=== PATIENT | male | born 1985 ===

== ENCOUNTER 2018-05-14 13:53 | Emergency (ER) | payer OTHER ==
[2018-05-14 14:17] VITALS: BMI 26.5
[2018-05-14 14:21] VITALS: RESP 24; TEMP 98.4; O2SAT 98
[2018-05-14] MEDS ORDERED: Sodium Chloride 0.9% 1,000 ML IV STA (14:21)
--- NOTE | 2018-05-14 14:32 | ED PDOC ---
Arrival/HPI - General Chief Complaint: Abdominal Pain Time Seen by Provider: 05/14/18 14:09 Historian: Patient - History of Present Illness Narrative History of Present Illness (Text): 05/14/18 14:29 32yo male with no past medical history who present with complaint of diffuse "burning" abdominal pain x 2days. Notes that pain is usually after eating. Did not take any medication. Denies previous history. Denies nausea, vomiting, diarrhea, constipation, fever, chills, melena, hemaetemesis, dizziness, urinary symptoms, chest pain, any other complaint. Past Medical History - Provider Review Nursing Documentation Reviewed: Yes - Infectious Disease Hx of Infectious Diseases: None - Psychiatric Hx Substance Use: No Family/Social History - Physician Review Nursing Documentation Reviewed: Yes Family/Social History: Unknown Family HX Smoking Status: Never Smoked Hx Alcohol Use: No (Former Drinker) Hx Substance Use: No Allergies/Home Meds Allergies/Adverse Reactions: Allergies No Known Allergies Allergy (Verified 05/14/18 14:17) Review of Systems - Physician Review All systems were reviewed & negative as marked: Yes - Review of Systems Constitutional: Normal Eyes: Normal ENT: Normal Respiratory: Normal Cardiovascular: Normal Gastrointestinal: Abdominal Pain. absent: Constipation, Diarrhea, Nausea, Vomiting, Hematochezia, Hematemesis Genitourinary Male: Normal Musculoskeletal: Normal Skin: Normal Neurological: Normal Endocrine: Normal Hemo/Lymphatic: Normal Psychiatric: Normal Physical Exam Vital Signs Reviewed: Yes Vital Signs Temp Pulse Resp BP Pulse Ox 05/14/18 14:19 98.4 F 62 24 118/60 98 Temperature: Afebrile Blood Pressure: Normal Pulse: Regular Respiratory Rate: Normal Appearance: Positive for: Well-Appearing, Non-Toxic, Comfortable Pain Distress: None Mental Status: Positive for: Alert and Oriented X 3 - Systems Exam Head: Present: Atraumatic, Normocephalic Pupils: Present: PERRL Extroacular Muscles: Present: EOMI Conjunctiva: Present: Normal Mouth: Present: Moist Mucous Membranes Neck: Present: Normal Range of Motion Respiratory/Chest: Present: Clear to Auscultation, Good Air Exchange. No: Respiratory Distress, Accessory Muscle Use Cardiovascular: Present: Regular Rate and Rhythm, Normal S1, S2. No: Murmurs Abdomen: Present: Tenderness (Upper abdominal tenderness), Other (soft). No: Distention, Peritoneal Signs, Rebound, Guarding, Rovsing's Sign Present Back: Present: Normal Inspection Upper Extremity: Present: Normal Inspection. No: Cyanosis, Edema Lower Extremity: Present: Normal Inspection. No: Edema Neurological: Present: GCS=15, CN II-XII Intact, Speech Normal Skin: Present: Warm, Dry, Normal Color. No: Rashes Psychiatric: Present: Alert, Oriented x 3, Normal Insight, Normal Concentration Medical Decision Making ED Course and Treatment: 05/14/18 14:32 32yo male who present with generalized abdominal tenderness x 2days. Labs ordered I L NS and pepcid ordered Abdominal US ordered to r/o gallstone Vs gastritis Will reassess pt 05/14/18 16:17 PT remain comfortable in Emergency department. He was hemodynamically stable. His lab was unremarkable Abdominal US RIGHT KIDNEY: Measures 9.8 x 5.0 x 5.4cm. Normal echogenicity. No calculus, mass, or hydronephrosis. LEFT KIDNEY: Measures 10.1 x 6.0 x 5.8cm. Normal echogenicity. No calculus, mass, or hydronephrosis. SPLEEN: Normal in size and contour. No mass. 8.6 x 4.0 x 3.9 AORTA: No aneurysmal dilatation. IVC: Unremarkable. OTHER FINDINGS: None. IMPRESSION: Unremarkable abdominal sonogram. On r evaluation he notes that his pain resolved with medication in Emergency department. Result was DW the pt. He was DC home with pepcid and was referred to a GI. - Lab Interpretations Lab Results: 05/14/18 14:42 05/14/18 14:42 Lab Results 05/14/18 14:42: Sodium 141, Potassium 3.8, Chloride 103, Carbon Dioxide 29, Anion Gap 13, BUN 18, Creatinine 0.7 L, Est GFR ( Amer) > 60, Est GFR ( Non-Af Amer) > 60, Random Glucose 94, Calcium 9.4, Magnesium 1.8, Total Bilirubin 0.9, AST 29, ALT 28, Alkaline Phosphatase 91, Total Protein 7.5, Albumin 4.3, Globulin 3.2, Albumin/Globulin Ratio 1.3, Lipase 45 05/14/18 14:42: Urine Color Yellow, Urine Appearance Clear, Urine pH 8.0, Ur Specific [place] 1.015, Urine Protein 30 H, Urine Glucose (UA) Negative, Urine Ketones Negative, Urine Blood Negative, Urine Nitrate Negative, Urine Bilirubin Negative, Urine Urobilinogen 0.2, Ur Leukocyte Esterase Negative, Urine RBC 0 - 2, Urine WBC 0 - 2, Ur Epithelial Cells None, Urine Bacteria Mod 05/14/18 14:42: PT 12.3, INR 1.08, APTT 27.4 05/14/18 14:42: WBC 6.8, RBC 4.59, Hgb 13.9 L, Hct 39.0 L, MCV 85.0, MCH 30.3, MCHC 35.6, RDW 13.2, Plt Count 234, MPV 10.1, Gran % 61.1, Lymph % (Auto) 29.3, [place] % (Auto) 8.0 H, Eos % (Auto) 1.3 L, Baso % (Auto) 0.3, Gran # 4.12, Lymph # (Auto) 2.0, [place] # (Auto) 0.5, Eos # (Auto) 0.1, Baso # (Auto) 0.02 - RAD Interpretation Radiology Orders: 05/14/18 14:20 ABDOMEN COMPLETE [US] Stat - Medication Orders Current Medication Orders: Discontinued Medications Famotidine (Pepcid) 20 mg IVP STAT STA Stop: 05/14/18 14:22 Last Admin: 05/14/18 15:50 Dose: 20 mg IVP Administration Document 05/14/18 15:50 [facility]CS (Rec: 05/14/18 15:50 [id number] Charges for Administration # of IVP Administrations 1 Sodium Chloride (Sodium Chloride 0.9%) 1,000 mls @ 999 mls/hr IV .Q1H1M STA Stop: 05/14/18 15:21 Last Admin: 05/14/18 15:49 Dose: 999 mls/hr eMAR Start Stop Document 05/14/18 15:49 OCS (Rec: 05/14/18 15:50 [facility] [id number] Intravenous Solution Start Date 05/14/18 Start Time 15:50 End Date 05/14/18 End time 16:51 Total Infusion Time 61 Disposition/Present on Arrival - Present on Arrival Any Indicators Present on Arrival: No History of DVT/PE: No History of Uncontrolled Diabetes: No Urinary Catheter: No History of Decub. Ulcer: No History Surgical Site Infection Following: None - Disposition Have Diagnosis and Disposition been Completed?: Yes Diagnosis: Abdominal pain Disposition: HOME/ ROUTINE Disposition Time: 15:50 Patient Plan: Discharge Patient Problems: Current Active Problems Problem Status Onset Abdominal pain Acute Condition: STABLE Discharge Instructions (ExitCare): Acute Abdomen (Belly Pain) Additional Instructions: Follow up with the clinic/[facility] Return to Emergency department for any new or worsening symptoms Prescriptions: Famotidine [Pepcid] 40 mg PO DAILY #15 tab Referrals: PCP,BELEN [Primary Care Provider] - Follow up with primary Ken Mccauley DO [Staff Provider] - Follow up with primary Faviola Ortiz MD [Staff Provider] - Follow up with primary Forms: [employer] (Arabic)
[2018-05-14 15:07] LABS: ALB/GLOB RATIO 1.3 (1.1-1.8); ALBUMIN 4.3 g/dL (3.0-4.8); ALT/SGPT 28 U/L (7-56); AST/SGOT 29 U/L (17-59); BASO # 0.02 K/mm3 (0.0-2.0); BASO % 0.3 % (0.0-3.0); BLOOD UREA NITROGEN 18 mg/dL (7-21); CALCIUM 9.4 mg/dL (8.4-10.5); EOS # 0.1 (0.0-0.7); EOS % 1.3 % (1.5-5.0); GFR AFRICAN-AMERICAN > 60; GFR NON-AFRICAN AMERICAN > 60; GRAN # 4.12 (1.4-6.5); GRAN % 61.1 % (50.0-68.0); HEMOGLOBIN 13.9 g/dL (14.0-18.0); LIPASE 45 U/L (23-300); LYMPH % 29.3 % (22.0-35.0); MEAN CORPUSCULAR HEMOGLOBIN 30.3 pg (25.0-35.0); MEAN CORPUSCULAR HGB CONC 35.6 g/dl (31.0-37.0); MEAN PLATELET VOLUME 10.1 fl (7.0-11.0); MONO # 0.5 (0.1-0.6); RBC 4.59 10^6/uL (3.5-6.1); RED CELL DISTRIBUTION WIDTH 13.2 % (11.5-14.5); WHITE BLOOD COUNT 6.8 10^3/ul (4.5-11.0)
[2018-05-14 15:08] LABS: INR 1.08; PROTHROMBIN TIME 12.3 SECONDS (9.4-12.5)
[2018-05-14 15:11] LABS: PARTIAL THROMBOPLASTIN TIME 27.4 Seconds (25.1-36.5)
[2018-05-14 15:16] LABS: URINE BILIRUBIN NEGATIVE (NEGATIVE); URINE BLOOD NEGATIVE (NEGATIVE); URINE GLUCOSE (UA) NEGATIVE (NEGATIVE); URINE LEUKOCYTE ESTERASE NEGATIVE Leu/uL (NEGATIVE); URINE PROTEIN 30 mg/dL (<30 mg/dL); URINE UROBILINOGEN 0.2 E.U./dL (<1 E.U./dL)
[2018-05-14 15:17] LABS: URINE APPEARANCE CLEAR (CLEAR); URINE COLOR YELLOW (YELLOW)
[2018-05-14 15:24] LABS: URINE BACTERIA MOD (NEG); URINE RBC 0 - 2 /hpf (0-2); URINE WBC 0 - 2 /hpf (0-6)
--- NOTE | 2018-05-14 15:43 | US ---
Date of service: 05/14/2018 HISTORY: RUQ abdominal pain COMPARISON: None. TECHNIQUE: Sonographic evaluation of the abdomen. FINDINGS: LIVER: Measures 13.5 cm. Normal echogenicity of the liver parenchyma. No mass. No intrahepatic bile duct dilatation. GALLBLADDER: Unremarkable. No gallstones. COMMON BILE DUCT: Measures 3 mm. No stones. No dilatation. PANCREAS: Unremarkable as visualized. No mass. No ductal dilatation. RIGHT KIDNEY: Measures 9.8 x 5.0 x 5.4cm. Normal echogenicity. No calculus, mass, or hydronephrosis. LEFT KIDNEY: Measures 10.1 x 6.0 x 5.8cm. Normal echogenicity. No calculus, mass, or hydronephrosis. SPLEEN: Normal in size and contour. No mass. 8.6 x 4.0 x 3.9 AORTA: No aneurysmal dilatation. IVC: Unremarkable. OTHER FINDINGS: None. IMPRESSION: Unremarkable abdominal sonogram.
[2018-05-14 20:27] VITALS: BP 120/65; PULSE 65
== END 2018-05-14 16:03 | disposition home or self-care (01) ==
LOC: ED 13:53
DX: R10.11 Right upper quadrant pain (principal)
CPT/HCPCS: 76700; 80053; 81001; 83690; 83735; 85025; 85610; 85730; 96361; 96374; 99283; J7030